=== PATIENT | male | born 1985 | race Hispanic/Latino ===

== ENCOUNTER 2022-07-05 16:39 | Emergency (ER) | payer OTHER ==
[~2022-07-05] VITALS: Ht 160 cm; Wt 73.6 kg
[2022-07-05 16:48] VITALS: BP 127/93
[2022-07-05 17:15] VITALS: BP 121/86
[2022-07-05] MEDS ORDERED: ZYRTEC10 MG PO (17:28)
[2022-07-05] MEDS ORDERED: FLONASE AL50 MCG/AC1 (17:28)
[2022-07-05] MEDS ORDERED: TESSALON PERLE100 MG PO (17:28)
[2022-07-05 17:30] VITALS: BP 119/85
[2022-07-05 17:35] VITALS: BP 119/85
== END 2022-07-05 17:40 | disposition home or self-care (01) | DRG 153 ==
LOC: ED 16:39
DX: J30.9 Allergic rhinitis, unspecified (principal)

== ENCOUNTER 2023-02-08 12:35 | Emergency (ER) | payer OTHER ==
[2023-02-08] VITALS (13 sets, daily range): BP systolic 110–132; BP diastolic 70–91
[~2023-02-08] VITALS: Ht 160 cm; Wt 72.6 kg
[~2023-02-08 12:35] MED LIST: FLONASE AL50 MCG/AC1; TESSALON PERLE100 MG PO; ZYRTEC10 MG PO
[2023-02-08] MEDS ORDERED: ZPAK PO (16:06)
== END 2023-02-08 14:00 | disposition home or self-care (01) | DRG 153 ==
LOC: ED 12:35
DX: J30.9 Allergic rhinitis, unspecified (principal); Z20.822 Contact with and (suspected) exposure to COVID-19

== ENCOUNTER 2023-09-22 18:39 | Emergency (ER) | payer SELFPAY ==
[~2023-09-22] VITALS: Ht 160 cm; Wt 68.0 kg
[2023-09-22] VITALS (7 sets, daily range): BP systolic 118–135; BP diastolic 82–91
[~2023-09-22 18:39] MED LIST changes: +ZPAK PO
[2023-09-22] MEDS ORDERED: MAXITROL 0.1 %1 SUS OS (19:27)
== END 2023-09-22 20:06 | disposition home or self-care (01) | DRG 125 ==
LOC: ED 18:39
DX: S05.02XA Injury of conjunctiva and corneal abrasion without foreign body, left eye, initial encounter (principal); X58.XXXA Exposure to other specified factors, initial encounter